=== PATIENT | female | born 1945 | race Caucasian/White ===

== ENCOUNTER 2017-02-07 09:44 | Emergency (ER) | payer OTHER ==
[~2017-02-07] VITALS: Ht 162.6 cm; Wt 81.6 kg
[~2017-02-07 09:44] MED LIST: BENTYL10 MG PO; CIPRO500 MG PO; Ecotrin PO; FLAGYL500 MG PO; NOHOMEMEDS; PRILOSEC40 MG PO; ULTRAM50 MG PO; Vitamin-E PO; Zocor
[2017-02-07 09:59] VITALS: BP 154/87
[2017-02-07 10:34] LABS: HEMATOCRIT 45.9 % (36.0-46.0); MCH 27.1 PG (29.0-34.0); MCHC 31.8 G/DL (30.0-36.0); MCV 85.2 FL (83-99); MEAN PLAT.VOLUME 10.6 uM^3 (9.5-12.4); PLATELET COUNT 249 K/uL (156-360); RBC DIS.WIDTH-CV 13.6 % (11.8-14.6); RBC DIS.WIDTH-SD 42.2 % (39-53); RED BLOOD COUNT 5.39 M/uL (3.80-5.20); WHITE BLOOD COUNT 5.6 K/uL (4.1-10.2)
[2017-02-07 10:48] LABS: CHLORIDE 105 mEq/L (99-109); POTASSIUM 4.1 mEq/L (3.7-5.4); SODIUM 139 mEq/L (136-147)
[2017-02-07 10:49] LABS: GLUCOSE 102 mg/dL (70-99)
[2017-02-07 10:51] LABS: ANION GAP 9 MEQ/L (2-14)
[2017-02-07 10:53] LABS: GFR ESTIMATE (CALCULATED) > 59 mL/min/; TOTAL BILIRUBIN 0.7 mg/dL (0.0-1.0)
[2017-02-07 10:54] LABS: ALKALINE PHOSPHATASE 69 IU/L (3-129); TROP-I INTERPRETATION NEGATIVE; TROPONIN-I < 0.01 ng/mL (0.0-0.30); UREA NITROGEN (BUN) 16 mg/dL (9-23)
[2017-02-07 10:57] LABS: DIRECT BILIRUBIN 0.3 mg/dL (0.0-0.3)
[2017-02-07 10:58] LABS: LIPASE 35 U/L (1.0-51.0)
== END 2017-02-07 14:00 | disposition left against medical advice (07) ==
LOC: EME 09:44
PROVIDERS: Emergency Medicine
DX: R07.89 Other chest pain (principal); K80.20 Calculus of gallbladder without cholecystitis without obstruction; K21.9 Gastro-esophageal reflux disease without esophagitis; Z87.891 Personal history of nicotine dependence
CPT/HCPCS: 71020; 71275; 74177; 76705; 80048; 80076; 81003; 83690; 84484; 85027; 93005; 99281; 99284; J7040

== ENCOUNTER → 2017-03-04 | Outpatient (CLI) | payer OTHER ==
[~2017-03-04] VITALS: Ht 163.8 cm; Wt 77.1 kg
[~2017-03-04] MED LIST changes: +FISH OIL 1,0001 EAC7 PO; +LO-DOSE ASPIRIN81 M2 PO; +VITAMIN D-32000 UNI2 PO
== END | disposition home or self-care (01) ==
LOC: AMB 09:55
PROC: 0DB68ZX Excision of Stomach, Via Natural or Artificial Opening Endoscopic, Diagnostic (ICD-10-PCS; principal; 2017-03-04)
DX: K31.9 Disease of stomach and duodenum, unspecified (principal); K44.9 Diaphragmatic hernia without obstruction or gangrene; R10.9 Unspecified abdominal pain; K21.9 Gastro-esophageal reflux disease without esophagitis; R07.89 Other chest pain; Z87.891 Personal history of nicotine dependence; Z79.82 Long term (current) use of aspirin; Z88.0 Allergy status to penicillin; Z80.8 Family history of malignant neoplasm of other organs or systems
CPT/HCPCS: 88305; 88342 TC

== ENCOUNTER 2017-05-15 10:16 | Emergency (ER) | payer OTHER ==
[~2017-05-15] VITALS: Ht 165.1 cm; Wt 82.0 kg
[2017-05-15 12:35] LABS: HEMATOCRIT 43.7 % (36.0-46.0); MCH 27.3 PG (29.0-34.0); MCHC 31.8 G/DL (30.0-36.0); MCV 85.7 FL (83-99); MEAN PLAT.VOLUME 10.9 uM^3 (9.5-12.4); PLATELET COUNT 240 K/uL (156-360); RBC DIS.WIDTH-CV 13.1 % (11.8-14.6); RBC DIS.WIDTH-SD 40.8 % (39-53); WHITE BLOOD COUNT 7.6 K/uL (4.1-10.2)
[2017-05-15 12:52] LABS: CHLORIDE 108 mEq/L (99-109); POTASSIUM 4.8 mEq/L (3.7-5.4); SODIUM 142 mEq/L (136-147)
[2017-05-15 12:53] LABS: GLUCOSE 104 mg/dL (70-99)
[2017-05-15 12:55] LABS: ANION GAP 8 MEQ/L (2-14)
[2017-05-15 12:57] LABS: GFR ESTIMATE (CALCULATED) 58 mL/min/
[2017-05-15 12:58] LABS: UREA NITROGEN (BUN) 15 mg/dL (9-23)
[2017-05-15] MEDS ORDERED: PREDNISONE20 MG PO (15:31)
[2017-05-15 15:43] VITALS: BP 187/56
== END 2017-05-15 15:45 | disposition home or self-care (01) ==
LOC: EME 10:16
PROVIDERS: Nurse Practitioner Family
DX: D49.6 Neoplasm of unspecified behavior of brain (principal); H92.01 Otalgia, right ear; Z88.0 Allergy status to penicillin
CPT/HCPCS: 70491; 80048; 85027; 99281; 99284; J7040

== ENCOUNTER 2017-11-21 16:55 | Observation (INO) | payer OTHER ==
[~2017-11-21] VITALS: Ht 165.1 cm; Wt 80.2 kg
[~2017-11-21 16:55] MED LIST changes: +OMEPRAZOLE40 M1 PO; +PREDNISONE20 MG PO; -PRILOSEC40 MG PO
[2017-11-21 17:22] LABS: HEMOGLOBIN 14.9 G/DL (11.9-15.5); MCH 28.1 PG (29.0-34.0); MCHC 33.1 G/DL (30.0-36.0); MCV 84.9 FL (83-99); PLATELET COUNT 220 K/uL (156-360); RBC DIS.WIDTH-CV 13.5 % (11.8-14.6); RBC DIS.WIDTH-SD 41.8 % (39-53); WHITE BLOOD COUNT 6.8 K/uL (4.1-10.2)
[2017-11-21 17:32] LABS: CHLORIDE 104 mEq/L (99-109); POTASSIUM 3.8 mEq/L (3.7-5.4); SODIUM 138 mEq/L (136-147)
[2017-11-21 17:34] LABS: GLUCOSE 104 mg/dL (70-99)
[2017-11-21 17:38] LABS: CREATININE 0.8 mg/dL (0.6-1.3); GFR ESTIMATE (CALCULATED) > 59 mL/min/
[2017-11-21 17:39] LABS: UREA NITROGEN (BUN) 10 mg/dL (9-23)
[2017-11-21] MEDS ORDERED: ALEVE220 MG PO (20:44)
[2017-11-21] MEDS ORDERED: FISH OIL 1,0001 EAC7 PO (20:44)
[2017-11-21] MEDS ORDERED: MOTRIN800 MG PO (20:45)
[2017-11-21 23:15] VITALS: BP 137/74
[2017-11-22 00:40] LABS: HEMATOCRIT 40.7 % (36.0-46.0); HEMOGLOBIN 13.1 G/DL (11.9-15.5); MCV 85.7 FL (83-99)
[2017-11-22 04:10] VITALS: BP 139/61
[2017-11-22 05:52] LABS: HEMOGLOBIN 12.4 G/DL (11.9-15.5); MCV 84.6 FL (83-99)
[2017-11-22 06:15] LABS: ALBUMIN 3.4 G/DL (3.2-4.8); ALKALINE PHOSPHATASE 51 IU/L (3-129); ALT (GPT) 13 IU/L (3-49); AST (GOT) 12 IU/L (2-34); CHLORIDE 109 MEQ/L (99-109); CREATININE 0.7 MG/DL (0.6-1.3); GFR ESTIMATE (CALCULATED) > 59 mL/min/; GLUCOSE 102 mg/dL (70-99); POTASSIUM 3.8 MEQ/L (3.7-5.4); SODIUM 140 MEQ/L (136-147); TOTAL BILIRUBIN 0.8 MG/DL (0.0-1.0); TOTAL PROTEIN 5.7 G/DL (6.4-8.3); UREA NITROGEN (BUN) 7 mg/dL (9-23)
[2017-11-22 07:20] VITALS: BP 145/81
[2017-11-22] MEDS ORDERED: AMLODIPINE BESYL5 MG PO (12:00)
[2017-11-22 12:10] LABS: HEMATOCRIT 41.3 % (36.0-46.0); HEMOGLOBIN 13.2 G/DL (11.9-15.5); MCV 84.8 FL (83-99)
[2017-11-22 12:41] VITALS: BP 168/77
== END 2017-11-22 13:42 | disposition home or self-care (01) ==
LOC: EME 16:55 → EDOF 22:13 → 5WEST 22:13 → EDOF 22:13 → ENRESERV 22:16 → 5WEST 22:57
PROVIDERS: Physician Assistant
DX: K62.5 Hemorrhage of anus and rectum (principal); K21.9 Gastro-esophageal reflux disease without esophagitis; R10.9 Unspecified abdominal pain; R19.7 Diarrhea, unspecified; M19.90 Unspecified osteoarthritis, unspecified site; Z87.891 Personal history of nicotine dependence; Z79.82 Long term (current) use of aspirin; Z80.1 Family history of malignant neoplasm of trachea, bronchus and lung; Z88.0 Allergy status to penicillin
CPT/HCPCS: 74177; 80048; 80053; 85014; 85018; 85027; 86850; 86900; 86901; 99281; 99285; G0378; J7030

== ENCOUNTER → 2018-01-06 | Outpatient (CLI) | payer OTHER ==
[~2018-01-06] VITALS: Ht 164.5 cm; Wt 78.0 kg
[~2018-01-06] MED LIST changes: +ALEVE220 MG PO; +AMLODIPINE BESYL5 MG PO; +LO-DOSE ASPIRIN81 M1 PO; +MOTRIN800 MG PO; +VITAMIN D2000 UNI1 PO
== END | disposition home or self-care (01) ==
LOC: AMB 06:23
PROC: 0DJD8ZZ Inspection of Lower Intestinal Tract, Via Natural or Artificial Opening Endoscopic (ICD-10-PCS; principal; 2018-01-06)
DX: K64.8 Other hemorrhoids (principal); E78.5 Hyperlipidemia, unspecified; E66.9 Obesity, unspecified; R10.9 Unspecified abdominal pain; Z87.891 Personal history of nicotine dependence; G45.9 Transient cerebral ischemic attack, unspecified; Z83.3 Family history of diabetes mellitus; Z80.1 Family history of malignant neoplasm of trachea, bronchus and lung; Z88.0 Allergy status to penicillin
CPT/HCPCS: 93005